=== PATIENT | male | born 1990 | race Caucasian/White ===

== ENCOUNTER 2017-03-26 13:33 | Emergency (ER) | payer MEDICAID ==
[~2017-03-26] VITALS: Ht 167.6 cm; Wt 107.0 kg
[2017-03-26 14:25] VITALS: Ht 167.6 cm; Wt 107.0 kg
[2017-03-26 17:31] VITALS: BP 130/84
== END 2017-03-26 17:32 | disposition home or self-care (01) ==
LOC: ED 13:33
DX: S41.012A Laceration without foreign body of left shoulder, initial encounter (principal); M12.50 Traumatic arthropathy, unspecified site; M25.562 Pain in left knee; M25.572 Pain in left ankle and joints of left foot; R05 Cough; J45.909 Unspecified asthma, uncomplicated; V29.9XXA Motorcycle rider (driver) (passenger) injured in unspecified traffic accident, initial encounter; Y93.I9 Activity, other involving external motion; Y99.8 Other external cause status; Y92.89 Other specified places as the place of occurrence of the external cause
CPT/HCPCS: J1885; J7613